=== PATIENT | female | born 1955 | race Caucasian/White ===

== ENCOUNTER 2018-02-17 01:45 | Inpatient (IN) | payer OTHER, SELFPAY ==
[2018-02-17] VITALS (7 sets, daily range): BP systolic 116–171; BP diastolic 60–92; PULSE 76–103; RESP 15–20; TEMP 36.6–37.8; O2SAT 94–99; BMI 30.9
--- NOTE | 2018-02-17 02:06 | DI.RAD.S_ITS ---
PROCEDURE: XR FINGER RT MIN 2V INDICATIONS: swelling pain right middle digit TECHNIQUE: AP hand, 2 views of the right third finger(s) acquired. COMPARISON: None. FINDINGS: Bones: No fractures or dislocations. No suspicious bony lesions. No erosive changes. No periosteal reaction. Soft tissues: No suspicious soft tissue calcifications. Soft tissue swelling is noted in cellulitis cannot be excluded. IMPRESSION: No dev evidence of osteomyelitis. Plain film radiographs can be insensitive to osteomyelitis during the initial 15 days of the disease process. If there is clinical concern for osteomyelitis, then three-phase nuclear medicine bone scan is warranted. Dictated by: Alyssa Reid MD, PhD on 02/17/2018 at 7:59 Approved by: Alyssa Reid MD, PhD on 02/17/2018 at 7:59
--- NOTE | 2018-02-17 02:22 | PC.NURSE ---
at for evaluation
[2018-02-17 03:41] LABS: Add Manual Diff / Slide Review NO; Basophils Percent Auto 0.1 % (0-2); Eosinophils Percent Auto 0.2 % (2-4); Hematocrit 33.8 % (36-46); Hemoglobin 11.4 g/dL (12.0-16.0); Lymphocytes Percent Auto 10.8 % (25-40); Mean Corpuscular HGB Conc 33.8 % (30-36); Mean Corpuscular Hemoglobin 31.1 PG (26-34); Mean Corpuscular Volume 92.1 fL (80-100); Monocytes Percent Auto 10.4 % (3-14); Neutrophils Absolute Auto 12400 /uL (3000-5900); Neutrophils Percent Auto 78.5 % (50-75); Platelet Count 272 X10^3/uL (150-400); Red Blood Cell Count 3.67 X10^6/uL (4.0-5.2); White Blood Cell Count 15.8 X10^3/uL (4.5-11.0)
--- NOTE | 2018-02-17 03:42 | ED_ITS ---
HPI - Skin/Abscess/Foreign Bdy General Chief complaint: Skin/Abscess/Foreign Body Stated complaint: right middle finger swollen, red had sgy 2 days ag History of Present Illness HPI narrative: HPI 63-year-old female presents for evaluation of proximally 3 days of painful left middle finger swelling, warmth, redness. Patient reports a long-standing issue with a small swelling on the dorsum of her hand immediately proximal to the nail bed, this became symptomatic and the patient had it drained an outside facility, she was placed on pain medications and steroids but no antibiotics. The patient had significant progression symptoms and presented to the emergency department for further care. ROS with no recent constitutional symptoms. Exam Gen: pleasant, not in extremis, but markedly uncomfortable. HEENT: NC, AT, PEERL, EOMI. Resp: Unlabored respirations with a normal work of breathing. Card: Extremities warm and well perfused. GI: Non-distended. : Deferred MSK: Left 3rd Finger is held in flexion, there is fusiform swelling, this is pain on palpation of the bilateral tendon sheaths, and there is pain on passive extension of the affected finger. There is brisk distal capillary refill. There is warm along the distal 2/3rds of the finger. Neuro: AO x 3, no facial asymmetry, vision and hearing WNL. Heme/Lymph: Deferred Skin: Normal color with no visible lesions (other than noted above). Psych: Mood and affect appropriate. Lab/imaging: XR L Hand: fusiform swelling of the left 3rd finger. No fracture or foreign bodies appreciated. No gas. Radiologist read pending. CBC, BMP, Procalcitonin pending. MDM Previous chart, nursing note, and vitals reviewed. A: 63-year-old female presents for evaluation of proximally 3 days of painful left middle finger swelling, warmth, redness. DDx & Evaluation: concern exists for flexor tenosynovitis versus diffuse cellulitis, low probability for low probability for gout. Patient given Unasyn. Prior to discussion with the orthopedist, temporizing ring block was performed with approximately 2 ML's total 1% lidocaine with epinephrine. Patient with good relief of pain, admitted to Dr. Sheth for evaluation in the morning. Impression: left 3rd finger pain (please reference below for remainder of encounter information) Related Data Allergies Allergy/AdvReac Type Severity Reaction Status Date / Time No Known Drug Allergies Allergy Verified 02/17/18 02:00 Exam Initial Vital Signs Initial Vital Signs: Vital Signs Temperature 98.0 F 02/17/18 02:00 Pulse Rate 76 02/17/18 02:00 Respiratory Rate 15 02/17/18 02:00 Blood Pressure 171/79 H 02/17/18 02:00 Pulse Oximetry 99 02/17/18 02:00 Course Orders Ordered: ED Orders 02/17/18 02:06 XR finger RT min 2V Stat 02/17/18 03:17 Basic Metabolic Panel Stat Complete Blood Count AUTO DIFF Stat Procalcitonin Stat Discontinued Medications Ampicillin Sodium/Sulbactam (Sodium 3 gm/ Sodium Chloride) 100 mls @ 100 mls/ hr IV NOW ONE Stop: 02/17/18 03:09 Ampicillin Sodium/Sulbactam (Sodium 1.5 gm/ Sodium Chloride) 100 mls @ 100 mls/ hr IV NOW ONE Stop: 02/17/18 03:09 Vital Signs - 8 hr 02/17/18 02:00 Temperature 98.0 F Pulse Rate 76 Respiratory Rate 15 Blood Pressure 171/79 H Pulse Oximetry 99 MDM - Skin/Abscess/Foreign Bdy Lab Data Result diagrams: 02/17/18 03:17 02/17/18 03:17
[2018-02-17 03:53] LABS: BUN Creatinine Ratio 17.5 (6-22); Blood Urea Nitrogen 14 mg/dL (7-17); Calcium 9.2 mg/dL (8.4-10.2); Carbon Dioxide 27 mmol/L (22-32); Chloride 104 mmol/L (98-107); Estimated Glomerular Filt Rate > 60.0 mL/min (>60); Glucose 106 mg/dL (80-110); HEMOLYSIS < 15 (0-50); Potassium 3.5 mmol/L (3.4-5.1); Sodium 140 mmol/L (137-145)
[2018-02-17 04:08] LABS: Procalcitonin < 0.05 ng/mL (<0.5)
[2018-02-17] MEDS: AMPICILLIN/SULBACTAM 1.5 GM 1.5 GM in SODIUM CHLORIDE 0.9% 100 ML IV (04:27)
--- NOTE | 2018-02-17 05:07 | PC.NURSE ---
0445 awaiting bed without need. pt. resting with eyes closed and lights off in room.
--- NOTE | 2018-02-17 05:08 | PC.NURSE ---
0508 attempted to call report
--- NOTE | 2018-02-17 06:25 | PC.ADMIT ---
2228 Yaniv Herrera Admission Note: Sumi was transferred to room 229 from Emergency Room in wheel chair with abscess in right middle finger digit, extreme pain within 15 minutes of arrival, crying, moaning and very fearful. Digital block completely worn off and she is back to severe > 10 pain. RADIOLOGY PHYSICIAN Dilaudid started 0.2 mg with 10 minute lockout started at 0615, 30 minutes after arrival. pain remained high at 10 /10 until 0630 when started to yesi. The patient,Nohemi Martin,63 y/o, was given written information regarding hospital policies, unit procedures and contact persons. She was i high level of pain and had a challenging time listening. She was able to repeat back instructions about RADIOLOGY PHYSICIAN, 1:1 nursing for first hour of admit into floor care. Continuous sats at 97-98 %. Patient's smoking status: Never smoker. Vital Signs - 8 hr 02/17/18 02:00 02/17/18 05:11 Temperature 98.0 F 98.4 F Pulse Rate 76 89 Respiratory Rate 15 17 Blood Pressure 171/79 H 132/74 H Pulse Oximetry 99 98
[2018-02-17] MEDS: HYDROMORPHONE PCA 6 MG/30 ML PCA.VIAL IV ×3 (06:26→21:54)
--- NOTE | 2018-02-17 07:32 | PC.NURSE ---
Arrived to patient's room for morning report and patient crying and yelling her pain is out of control dilaudid portfolio administrator not working for pain. Dr. Domenic pinedo, Kal NETTLES called.
--- NOTE | 2018-02-17 08:07 | PM.PN.1 ---
Subjective Date Patient Seen: 02/17/18 Time Patient Seen: 08:07 Interval history: Patient was admitted to hospital early this morning from the emergency room with acute right middle finger pain. She states having history of what sounds like a mucoid cyst to her dorsal DIPJ middle finger for several months. About 4 days ago she had onset of increased pain swelling and discoloration. She was seen at [facility] where she had aspiration of the cyst 3 days ago. She was given oral prednisone. Percocet for pain. Pain gradually increased over the next couple of days. Began noting some swelling to the finger the last 1-2 days. She does not know what the aspirate look like. She does not think they sent fluid for culture. She was not put on antibiotics. She was directed to come to the emergency room last night and came over on the last very. She did have a digital block done in the emergency room which gave her about 3 hr of relief. She has been getting hydromorphone COUNT TEAM MEMBER which only gave her about [address] Sheth was informed about consultation but has not seen the patient yet. Exam Vital Signs (past 8 hours): - 02/17/18 02:00 02/17/18 05:11 02/17/18 08:01 Temperature 98.0 F 98.4 F 97.9 F Pulse Rate 76 89 94 H Respiratory Rate 15 17 20 Blood Pressure 171/79 H 132/74 H 171/92 H Pulse Oximetry 99 98 95 Oxygen Delivery Method Room Air Oxygen Flow Rate 0 Narrative Exam Narrative: Alert responsive lying in bed with complaint of acute pain to her right middle finger. Right long finger. There is an area approximately 2 cm in diameter of dark red erythema and swelling to the dorsal aspect of finger between nail plate and DIPJ without drainage. Good color distal finger. Mild swelling to the remainder of the finger with slight erythema. Significant pain with any movement of the finger. Extrem Right upper extremity: hand Objective Labs Result Diagrams: 02/17/18 03:17 02/17/18 03:17 Labs: Laboratory Results - last 24 hr 02/17/18 02/17/18 02/17/18 03:17 03:17 03:17 WBC 15.8 H RBC 3.67 L Hgb 11.4 L Hct 33.8 L MCV 92.1 MCH 31.1 MCHC 33.8 RDW 13.0 Plt Count 272 Neut % (Auto) 78.5 H Lymph % (Auto) 10.8 L [place] % (Auto) 10.4 Eos % (Auto) 0.2 L Baso % (Auto) 0.1 Neut # (Auto) 14792 H Sodium 140 Potassium 3.5 Chloride 104 Carbon Dioxide 27 BUN 14 Creatinine 0.80 Estimated GFR > 60.0 BUN/Creatinine Ratio 17.5 Glucose 106 Calcium 9.2 Procalcitonin < 0.05 Assessment & Plan Plan: Assessment/Plan Narrative: Assessment: Right middle finger pain. Possible infected mucoid cyst. Plan: Patient will be seen by Dr. Sheth evaluated for possible surgical I and D versus other treatment. Will start Toradol 30 mg IV and diazepam 2 mg IV to help with pain along with her Dilaudid COUNT TEAM MEMBER. Patient will remain NPO until seen by Dr. Sheth. Quality VTE Deep Vein Thrombosis/Pulmonary Embolism Present on Admission: No
--- NOTE | 2018-02-17 08:13 | P.PN_ITS ---
Subjective Date Patient Seen: 02/17/18 Time Patient Seen: 08:07 Interval history: Patient was admitted to hospital early this morning from the emergency room with acute right middle finger pain. She states having history of what sounds like a mucoid cyst to her dorsal DIPJ middle finger for several months. About 4 days ago she had onset of increased pain swelling and discoloration. She was seen at [facility] where she had aspiration of the cyst 3 days ago. She was given oral prednisone. Percocet for pain. Pain gradually increased over the next couple of days. Began noting some swelling to the finger the last 1-2 days. She does not know what the aspirate look like. She does not think they sent fluid for culture. She was not put on antibiotics. She was directed to come to the emergency room last night and came over on the last very. She did have a digital block done in the emergency room which gave her about 3 hr of relief. She has been getting hydromorphone STUDENT OUTREACH COORDINATOR which only gave her about [address] Sheth was informed about consultation but has not seen the patient yet. Exam Vital Signs (past 8 hours): - 02/17/18 02:00 02/17/18 05:11 02/17/18 08:01 Temperature 98.0 F 98.4 F 97.9 F Pulse Rate 76 89 94 H Respiratory Rate 15 17 20 Blood Pressure 171/79 H 132/74 H 171/92 H Pulse Oximetry 99 98 95 Oxygen Delivery Method Room Air Oxygen Flow Rate 0 Narrative Exam Narrative: Alert responsive lying in bed with complaint of acute pain to her right middle finger. Right long finger. There is an area approximately 2 cm in diameter of dark red erythema and swelling to the dorsal aspect of finger between nail plate and DIPJ without drainage. Good color distal finger. Mild swelling to the remainder of the finger with slight erythema. Significant pain with any movement of the finger. Extrem Right upper extremity: hand Objective Labs Result Diagrams: 02/17/18 03:17 02/17/18 03:17 Labs: Laboratory Results - last 24 hr 02/17/18 02/17/18 02/17/18 03:17 03:17 03:17 WBC 15.8 H RBC 3.67 L Hgb 11.4 L Hct 33.8 L MCV 92.1 MCH 31.1 MCHC 33.8 RDW 13.0 Plt Count 272 Neut % (Auto) 78.5 H Lymph % (Auto) 10.8 L [place] % (Auto) 10.4 Eos % (Auto) 0.2 L Baso % (Auto) 0.1 Neut # (Auto) 70637 H Sodium 140 Potassium 3.5 Chloride 104 Carbon Dioxide 27 BUN 14 Creatinine 0.80 Estimated GFR > 60.0 BUN/Creatinine Ratio 17.5 Glucose 106 Calcium 9.2 Procalcitonin < 0.05 Assessment & Plan Plan: Assessment/Plan Narrative: Assessment: Right middle finger pain. Possible infected mucoid cyst. Plan: Patient will be seen by Dr. Sheth evaluated for possible surgical I and D versus other treatment. Will start Toradol 30 mg IV and diazepam 2 mg IV to help with pain along with her Dilaudid STUDENT OUTREACH COORDINATOR. Patient will remain NPO until seen by Dr. Sheth. Quality VTE Deep Vein Thrombosis/Pulmonary Embolism Present on Admission: No
[2018-02-17] MEDS: KETOROLAC 30 MG/ML VIAL IV ×3 (08:19→20:30)
[2018-02-17] MEDS: diazePAM 10 MG/2 ML SYRINGE 2 MG IV (08:20)
--- NOTE | 2018-02-17 12:48 | PC.NURSE ---
Day Shift Note: After pain was helped with valium and tordol iv, patient has been able to rest and sleep through pain. Encouraging patient to keep r hand elevated has helped. Patient is forgetful about keeping hand elevated. Patient declined multiple offers of ice packs. Patient has been dozing intermittently using dilaudid paragliding instructor as needed. No acute distress at this time. Will continue to monitor.
[2018-02-17] MEDS: SODIUM CHLORIDE 0.9% 1,000 ML 100 ML IV (14:52)
--- NOTE | 2018-02-17 15:47 | PC.NURSE ---
Addendum entered by Jp Trejo R.N. 02/17/18 22:13: OR nurse to floor to take patient down to surgery with Dr. Sheth. Patient was calm and cooperative VSS, used 2.6mg of Dilaudid COMPOSITE LAMINATOR on anna shift. Breif report was given to [place] OR nurse. Patient was transported via own bed. Original Note: Patient is A&O x3, pleasant and cooperative w/ staff and is able to make needs known when nec. Patient is resting in bed at this time. Reports pain to be 7/10 throbbing and burning but has improved over all since this am. COMPOSITE LAMINATOR is set up at bedside per OCT orders, new cartridge was placed at 1545. Patient has minimal movement in right middle finger, warm/hot to the tough, not able to bend finger, increase bruising and purple/black discoloration near the top of nail bed is visible. No drainage is noted from opening in the skin. Patient is aware of surgery time, consent was reviewed and signed w/ day nurse Kat. Call ligt w/ in reach, bed in low pos. alarm active.
[2018-02-17] MEDS: AMPICILLIN/SULBACTAM 3 GM 3 GM in SODIUM CHLORIDE 0.9% 100 ML IV ×2 (15:49→20:34)
--- NOTE | 2018-02-17 19:39 | P.HP_ITS ---
History of Present Illness Date Patient Seen: 02/17/18 Time Patient Seen: 16:36 Chief complaint: right middle finger swollen, red had sgy 2 days ag Narrative: Albertina notes some increased swelling into the right middle finger. She notes that it was getting progressively a little bit worse so she went to [facility] where she had an aspiration of cyst on the distal aspect of her finger and was placed on oral steroids. She notes that she has had significant increased pain into the hand and finger and has had some ongoing symptoms and chills with markedly worsened pain. Patient History Medical History Knee arthropathy (Acute) Knee cartilage, torn, left (Acute) Vaso vagal episode (Acute) Surgical History History of section (Acute) History of tonsillectomy (Acute) Family & Social History Family History: Reviewed 02/17/18 by Jeanine Sheth MD Social History: household members spouse Safety & Behavioral: Feels Safe in Current Yes Environment Been Physically Hurt or No Threatened By a Person Suicidal Ideation Description None Suicide Plan Description No Plan Tobacco & Substance use: Smoking Status Never smoker alcohol intake never Substance Use Type marijuana Meds Home Medications Medication Instructions Recorded Confirmed Type modafinil 100 mg PO DAILY 02/17/18 02/17/18 History Allergies Allergy/AdvReac Type Severity Reaction Status Date / Time No Known Drug Allergies Allergy Verified 02/17/18 02:00 Review of Systems Review of Systems She notes some fevers at home and progressive worsening pain day, she denies chest pain abdominal pain lung problems pneumonia problems urinating her other positive review of systems. All systems reviewed & are unremarkable except as noted in HPI and below Exam Vital Signs (past 8 hours): - 02/17/18 12:16 02/17/18 16:20 Temperature 98.0 F 98.8 F Pulse Rate 96 H 95 H Respiratory Rate 18 16 Blood Pressure 116/70 126/60 H Pulse Oximetry 95 95 Oxygen Delivery Method Room Air Oxygen Flow Rate 0 Narrative Exam Narrative: HEENT is benign lungs are clear cor regular rate and rhythm abdomen soft and benign examination of her right upper extremity shows obvious swelling of the middle finger DIP joint with arthritic changes in the index through small finger DIP joint on the right middle finger there is some fusiform swelling there is pain with attempted forced extension she holds her finger in a position of mild flexion there is cyst with a small amount of drainage but ecchymosis and erythema on the dorsum of her finger and she has marked pain with attempted range of motion of the DIP joint. There is no axillary or epicondylar adenopathy there is some generalized swelling of the right upper extremity. Abdomen soft and benign. Objective Labs Result Diagrams: 02/17/18 03:17 02/17/18 03:17 Labs: Laboratory Results - last 24 hr 02/17/18 02/17/18 02/17/18 03:17 03:17 03:17 WBC 15.8 H RBC 3.67 L Hgb 11.4 L Hct 33.8 L MCV 92.1 MCH 31.1 MCHC 33.8 RDW 13.0 Plt Count 272 Neut % (Auto) 78.5 H Lymph % (Auto) 10.8 L [place] % (Auto) 10.4 Eos % (Auto) 0.2 L Baso % (Auto) 0.1 Neut # (Auto) 13853 H Sodium 140 Potassium 3.5 Chloride 104 Carbon Dioxide 27 BUN 14 Creatinine 0.80 Estimated GFR > 60.0 BUN/Creatinine Ratio 17.5 Glucose 106 Calcium 9.2 Procalcitonin < 0.05 Assessment & Plan Plan: Assessment/Plan Narrative: X-rays show arthritic change and some destruction of the DIP joint of the index middle and ring finger there is obvious soft tissue swelling on the middle finger over the DIP joint. Impression is an infected right middle finger mucous cyst with extension into the DIP joint some swelling along the palmar surface but doubt extension into the flexor tendon or flexor tenosynovitis although she clearly has a septic joint and cellulitis. I have recommended irrigation and debridement with a plan to do a gentle debridement of the DIP joint. Procedure alternatives risks benefits and complications as well as the fact that she has underlying arthritic change into the joint and ultimately may have progressive arthritic change in the joint to the extent that she requires joint fusion were discussed in detail. We are waiting an opportunity to have time in the operating room. She is going to continue on IV antibiotics in the interim. Quality VTE Deep Vein Thrombosis/Pulmonary Embolism Present on Admission: No
--- NOTE | 2018-02-17 19:46 | PM.OP.1 ---
Operative Date/Time/Diagnoses - Date of procedure: 02/17/18 Time of procedure: 22:46 Pre-op diagnosis: Infected right middle finger with extension into the DIP joint Post-op diagnosis: same Procedure & Clinicians Procedure: Right middle finger irrigation and debridement with excisional debridement of bone and capsule from the right DIP joint Same procedure as scheduled: Yes Indications: History of an aspirate of the right middle finger DIP joint with subsequent worsening pain swelling and inflammation and infection. Surgeon: Jeanine Sheth Click Yes if Unassisted: Yes Anesthesia Type: General Operative Notes Findings: Moderate infectious material encountered small spurs debrided from the DIP joint both radial and ulnar aspect of the extensor tendon, cultures sent Closure Type: non-primary Specimen(s): other (Cultures) Estimated Blood Loss (mL): 30 Blood products transfused: none Tourniquet time (min): 18 Procedure in detail: Patient was brought to the operating room. Her right upper extremity prepped draped standard sterile fashion. General anesthesia was induced. Time-out was performed. A dorsal incision was made over the right middle finger after elevating the tourniquet to 250 mm of mercury. Dissection was carried out to the skin and subcutaneous tissues. There was grossly purulent material encountered. Cultures were sent including stat Gram stain culture and sensitivity. Dissection was then carried out down through the fat down along the extensor tendon. The capsule of the DIP joint was opened both on the radial and ulnar aspect of the extensor tendon. There was clear communication with the of infectious purulent material and the DIP joint. Both the radial and ulnar aspect of the DIP joint was meticulously irrigated with dilute antibiotic irrigation. The infection and abscess extended into the DIP joint extensor tendon did not appear to be severely compromised. There was moderate degenerative changes in the DIP joint. Some slight softened bone and the capsular edge in bone was removed both from the radial and ulnar aspect of the joint. After it had been thoroughly cleaned and debrided on it was meticulously packed with Nu Gauze down into the joint both on the radial and ulnar aspect of the extensor tendon. The wound was dressed sterilely. She was given a small splint. Postoperative plan continue with IV antibiotics probably until Wednesday do a wound check make sure that she is adequately healing at that point. On and I think we should have her do moist dressing changes as long as she is adequately responding to antibiotic she can probably be switched over to an oral antibiotic and plan to follow up with me next week. Complications: none Condition: stable Disposition: Acute Care Plan for aftercare: Check Gram stain and cultures tomorrow. Continue IV antibiotics tomorrow with probable plan for discharge on Wednesday. Home on oral antibiotics.
[2018-02-17] MEDS: SODIUM CHLORIDE 0.9% FLUSH 10 ML IV (20:34)
[2018-02-17] MEDS: fentaNYL 100 MCG/2 ML INJ IV ×2 (22:40→22:45)
[2018-02-18] VITALS (14 sets, daily range): BP systolic 95–140; BP diastolic 7–84; PULSE 63–97; RESP 15–18; TEMP 36.1–37.2; O2SAT 93–99
[2018-02-18] MEDS: GENTAMICIN 160 MG in SODIUM CHLORIDE 0.9% 100 ML 104 ML IV
[2018-02-18] MEDS: BUPIVACAINE 0.5% (PF) 30 ML VIAL 13 ML INJ (00:01)
[2018-02-18] MEDS: VANCOMYCIN 1,000 MG/200 ML FROZ.PIGGY 200 MG IV (02:06)
[2018-02-18] MEDS: LACTATED RINGERS 1,000 ML 125 ML IV (02:07)
[2018-02-18] MEDS: KETOROLAC 30 MG/ML VIAL IV ×4 (02:09→19:32)
[2018-02-18] MEDS: AMPICILLIN/SULBACTAM 3 GM 3 GM in SODIUM CHLORIDE 0.9% 100 ML IV ×4 (04:58→19:32)
[2018-02-18] MEDS: OXYCODONE IR 5 MG TABLET PO ×2 (07:48→09:11)
[2018-02-18] MEDS: ACETAMINOPHEN 325 MG TABLET 650 MG PO (09:24)
--- NOTE | 2018-02-18 10:17 | PM.PNPO.1 ---
Subjective Date Patient Seen: 02/18/18 Time Patient Seen: 10:00 Interval history: Patient was seen bedside status post I and D of the right middle finger. Patient is doing well however she is in pain at this time. She is elevating her hand but is not currently icing. Cultures were sent off from the OR yesterday. She is currently on IV antibiotics. Exam Vital Signs (past 8 hours): - 02/18/18 02:45 02/18/18 03:47 02/18/18 08:34 Temperature 98.0 F 97.9 F 98 F Pulse Rate 90 87 Respiratory Rate 16 16 18 Blood Pressure 140/64 H 113/62 124/7 H Pulse Oximetry 99 Oxygen Delivery Method Room Air Oxygen Flow Rate 0 Narrative Exam Narrative: Patient is well-developed well-nourished in mild distress. She is alert and oriented x3. On exam her right middle finger dressing is clean dry and intact. She is extremely tender upon palpation over the entire hand. She has swelling and erythema into the hand. She is neurovascularly intact in this extremity. Objective Labs Result Diagrams: 02/17/18 03:17 02/17/18 03:17 Assessment & Plan Post-op Postoperative Procedures Operation Date: 02/17/18 18:45 Actual Procedures Side Surgeon p I&D Right Middle Finger Right Jeanine Sheth MD The patient is postop day 1 status post I&D of her right middle finger. Continue with pain control and IV antibiotics. Discharge home tomorrow on p.o. antibiotics. All questions answered at the time of the exam. Time Spent With Patient less than 15 minutes Quality VTE Deep Vein Thrombosis/Pulmonary Embolism Present on Admission: No
[2018-02-18] MEDS: HYDROMORPHONE 2 MG TABLET PO (10:36)
[2018-02-18] MEDS: hydrOXYzine pamoate 25 MG CAPSULE PO (10:36)
[2018-02-18] MEDS: OXYCODONE IR 10 MG TABLET PO ×3 (12:10→19:32)
[2018-02-18] MEDS: SODIUM CHLORIDE 0.9% 250 ML 21 ML IV (14:30)
[2018-02-18] MEDS: SODIUM CHLORIDE 0.9% FLUSH 10 ML IV (14:31)
--- NOTE | 2018-02-18 14:39 | CM.IDA ---
DCP Assessment Note: Pt is a 63 yo female, resident of [place]. Pt is an inpt for I+D w/ Dr Sheth of her infected rt finger. Pt's PCP is not listed; Insurance is Ali. Attempted to meet w/pt yesterday and Dr Sheth was discussing procedure and OR schedule. Pt anxious and NPO for many hours. Then attempted assessment today, pt in hysterics, crying in pain, RN aware and requesting addtl pain control from Ortho PA. Sat w/pt for a few minutes, made sure she could contact her spouse by phone, he is unable to visit today. Pt explains she had two natural child births and this is more pain than she had ever been in before. Checked in w/RN this afternoon. Addlt pain medication made a big difference for pt and she is calm in rm w/pain managed. Pt indp at baseline and is expected to DC back home when medically stable. This STAFF CERTIFIED NURSE MIDWIFE following closely and will plan to chk in w/pt Wednesday to review DCP. ISABELLA Quiroga Discharge Planning/Care Management CM Discharge Assessment Start: 02/18/18 14:38 Freq: Status: Active Protocol: Document 02/18/18 14:38 ALFONZO (Rec: 02/18/18 14:39 ALFONZO [id number]) Discharge Planning Assessment Assigned Billet Grinder ALFONZO History Provided By Patient Medical Record Has Patient been admitted in last 30 No days? Is this patient on Medicare? No Prior Living Arrangements House Household Members spouse Type of transporation used prior to Drives own vehicle admit Independent with ADL's Yes Is patient alert and oriented? Yes Caregiver for Another No Referrals Initiated None needed Discharge Plan Home Transportation Arrangement Spouse Review Status In Process Next Review Type Discharge Review
[2018-02-18] MEDS: DOCUSATE 100 MG CAPSULE PO (19:32)
[2018-02-18] MEDS: ASPIRIN EC 81 MG TABLET PO (19:32)
--- NOTE | 2018-02-18 22:10 | PC.SBAR ---
SITUATION: []patient is POD 1, drg. to site is CDI, patient reports improved movement, and pain in right mid. digit. Ice to surgical site now, pain medication tx per MAR orders every 3-4 hrs. BACKGROUND: [Patient arrived to hospital w/ infection of right mid digit, increased erythema, edema to entire mid digit radiating to hand. Skin was black in color near the cutical of the fingernail bed and redness on top an palm of hand. Boarders were drawn on hand prior to patient going down to surgery for a I&D.] ASSESSMENT: [Improved mobility, flexion, extension of finger but still limited. Erythema and Edema has significantly decreased in mid digit but still present. Drg. to site is CDI] RECOMMENDATION: [Elevating extremity, ice for comfort w/ pain treatment per MAR orders. Cont. with IV anti-bx treatment.] RESPONSE: [Patient is agreeable to all above, discussed at bedside w/ patient.]
[2018-02-19] MEDS: OXYCODONE IR 5 MG TABLET PO ×3 (00:39→08:59)
[2018-02-19] MEDS: ONDANSETRON 4 MG ODT PO (00:39)
--- NOTE | 2018-02-19 01:09 | PC.NURSE ---
Right finger bandaged. Swollen,painful. No redness around bandage site. Did not remove bandage for inspection. Patient has sensation and can move finger. Unable to get cap refill due to bandage. Will continue to monitor site.
[2018-02-19] MEDS: KETOROLAC 30 MG/ML VIAL IV (02:19)
[2018-02-19] MEDS: SODIUM CHLORIDE 0.9% FLUSH 10 ML IV (02:19)
[2018-02-19] MEDS: AMPICILLIN/SULBACTAM 3 GM 3 GM in SODIUM CHLORIDE 0.9% 100 ML IV (02:25)
[2018-02-19 04:00] VITALS: BP 128/67; PULSE 93; RESP 16; TEMP 36.8; O2SAT 94
--- NOTE | 2018-02-19 07:58 | PM.DS.1 ---
History of Present Illness Date Patient Seen: 02/19/18 Time Patient Seen: 08:29 Chief complaint: right middle finger swollen, red had sgy 2 days ag Narrative: Patient was admitted to the hospital on 02/17/2018 with a abscess of the right middle finger. She was taken to the OR on 02/17/[address] Sheth for a I and D finger. Cultures were taken at that time that not grown out anything. Patient had difficulty with pain yesterday however her pain is better controlled today. She would like to go home. Discharge Providers Date of admission: 02/17/18 04:53 Consults: 02/18/18 01:33 Consult to Discharge Planning Routine Comment: Discharge provider: Edwina Zuniga PA-C Summary Discharge Diagnosis: Right middle finger abscess Hospital Course: Patient was admitted to the hospital with an abscess of the right middle finger. She is taken to the OR on 02/17/18 for an I&D by Dr. Sheth. Patient tolerated procedure well and was transferred back to the surgical floor. She had difficulty with pain on 02/18 however her pain is better controlled today. She would like to go home. Patient will be discharged today with pain medication as well as antibiotics that are broad spectrum and will cover MRSA. If cultures grow out bacteria that is resistant to prescribe antibiotic will give her a call and give her a new one. Status at Discharge Cognitive/behavioral status at discharge: Alert and oriented x3 Functional status at discharge: independent ambulation Overall status at discharge: patient is progressing back to baseline Time Spent with Patient Less than 30 minutes Exam Vital Signs (past 8 hours): - 02/19/18 04:00 Temperature 98.3 F Pulse Rate 93 H Respiratory Rate 16 Blood Pressure 128/67 H Pulse Oximetry 94 Oxygen Delivery Method Room Air Oxygen Flow Rate 0 Narrative Exam Narrative: Patient is well-developed well-nourished in no acute distress. Patient alert oriented x3. Examination finger dressing in the right middle finger is clean dry and intact. Redness that was into the palm yesterday is progressed and swelling is improved since yesterday. She is neurovascularly intact in this hand and she has full range of motion of her other fingers and wrist. Objective Labs Result Diagrams: 02/17/18 03:17 02/17/18 03:17 Discharge Plan Discharge Plan Patient Disposition: Home, Self-Care Provider Discharge Instructions Diet: Diet as Tolerated Activity: as tolerated Wound Care Report to your healthcare provider any signs of infection, such as:: chills, fever, night sweats, increased pain and unusual drainage Dressing: Start wet-to-dry dressing changes twice daily. Use saline to wet a 4x4 and pack this into the incision. Cover with a dry 4x4 and tape. Keep dressings clean and dry. Alert office of any increased redness or drainage. Discharge Data Attending Provider: Jeanine Sheth Admit Date/Time: 02/17/18 04:53 Quality VTE Deep Vein Thrombosis/Pulmonary Embolism Present on Admission: No
[2018-02-19 08:46] VITALS: BP 147/85; PULSE 94; RESP 16; TEMP 36.8; O2SAT 94
[2018-02-19] MEDS: DOCUSATE 100 MG CAPSULE PO (09:00)
[2018-02-19] MEDS: SULFA/TRIMETH 800/160 (DS) TABLET 1 TAB PO (09:00)
[2018-02-19] MEDS: hydrOXYzine pamoate 25 MG CAPSULE PO (10:54)
[2018-02-19] MEDS: ACETAMINOPHEN 325 MG TABLET 650 MG PO (10:54)
--- NOTE | 2018-02-19 11:05 | PC.NURSE ---
Addendum entered by Cheyenne Wayne R.N. 02/19/18 15:25: pain - prior to discharge, given 10mg oxycodone for ferry trip home, pain improved with the 10mg oxycodone now 5 on scale 0/10, reviewed dc instructions with pt, copies provided, waiting return spouse from pharmacy. Original Note: Addendum entered by Cheyenne Wayne R.N. 02/19/18 14:42: PAIN/ITEG - when spouse arrived, explanation change dsg w to d provided, removed the existing dsg gently with normal saline, wound bed dark pink, lightly replaced packing, gauze and then stretch gauze over w/wrap completed, supplies were provided to pt for mult dsg changes next few days, including gauze, wrap, normal saline, scripts were given to spouse and taken to [facility] to fill prior to discharge. prior to dsg change, discussed pain medications, dosages and timing and was given 10mg oxycodone after lunch and prior to dsg change. Original Note: AM NOTE - alert, ambul indep out [facility] the [facility] [place] in this am and pt will dc home, instructions given to pt to change dsg when she gets home bid, wet to dry, supplies organized to take home and later instructed pt how wet to dry is done, she is calling spouse this am who will be coming over from [place], scripts are written and he will need to fill prior to returning home as [facility] is closed weekend. Pain mgt discussed and pt prefers to not take too much narcotic, earlier oxycodone providing some relief, given 5mg po at breakfast, dsg 3rd finger r hand c,d,i, some extending redness and edema visible, per PA, redness has decreased from yesterday, later after nap, awoke with increased pain, states 9 on scale 0/10, discussed medication and added 650mg po tylenol and 25mg po vistaril.
[2018-02-19] MEDS: OXYCODONE IR 10 MG TABLET PO (12:27)
--- NOTE | 2018-02-19 14:02 | CM.DPNOTE ---
DC Note: Pt feeling much better and ready for DC home today. Pt being picked up by spouse, spouse will fill Rx before arrival. Pt/spouse will take the ferry home this afternoon/evening. No barriers to safe DC home w/spouse. JW
== END 2018-02-19 15:45 | disposition home or self-care (01) | DRG 514 ==
LOC: ED 03:44 → AC 07:09
PROVIDERS: Admitting Provider Orthopaedic Surgery; Emergency Provider Emergency Medicine; Visit Provider Orthopaedic Surgery
PROC: 0PBT0ZZ Excision of Right Finger Phalanx, Open Approach (ICD-10-PCS; principal; 2018-02-17 18:45)
DX: M00.9 Pyogenic arthritis, unspecified (principal); L03.011 Cellulitis of right finger
CPT/HCPCS: 36415; 36592; 73140; 80048; 84145; 85025; 87070; 87075; 87077; 87147; 87186; 87205; 99282; J0295; J1885; J2405; J2704; J3010; J3360; J3370